=== PATIENT | female | born 1980 | race Caucasian/White ===

== ENCOUNTER 2016-07-08 05:36 | Emergency (ER) | payer OTHER ==
[~2016-07-08] VITALS: Ht 162.6 cm; Wt 90.7 kg
[~2016-07-08 05:36] MED LIST: APAP500 PO; BENADRYL25 MG PO; COLACE 100 MG100 MG PO; DERMOPLAST SPRA56 ML TOP; HYDROCORTISONE30 G9 TOP; IBUPROFEN 600600 M1 PO; IRON325 PO; LANOLIN56 GM TOP; PEPCID AC20 M1 PO; PEPTO-BISM262 MG/15 PO; TUCKS1 EAC1 TOP; ZOFRAN ODT4 MG PO
[2016-07-08 06:02] LABS: BASOPHILS 0.5 % (0.0-2.0); EOSINOPHILS 1.1 % (0.0-3.0); HEMATOCRIT 30.4 % (37.0-47.0); HEMOGLOBIN 9.9 gm/dL (12.0-15.0); LYMPHOCYTES 18.2 % (24.0-44.0); MANUAL DIFF NO; MCH 25.6 pg (26.0-34.0); MCHC 32.6 g/dL (28.0-37.0); MCV 78.3 fL (80.0-100.0); MONOCYTES 6.5 % (1.0-8.0); PLATELET COUNT 313 thou/uL (150-400); POLYS 73.7 % (36.0-66.0); RBC 3.88 mil/uL (4.20-5.00); RDW 15.4 % (10.5-14.5); WBC 13.6 thou/uL (4.0-11.0)
[2016-07-08 07:24] VITALS: BP 130/69
[2016-07-11 17:10] LABS: CHLAMYDIA TRACHOMATIS-PCR Negative (Negative); NEISSERIA GONORRHEA-PCR Negative (Negative)
== END 2016-07-08 07:15 | disposition short-term general hospital (02) ==
LOC: ER 05:36
PROVIDERS: Emergency Medicine
DX: O75.89 Other specified complications of labor and delivery (principal); J45.909 Unspecified asthma, uncomplicated; Z3A.36 36 weeks gestation of pregnancy; Z88.1 Allergy status to other antibiotic agents; Z91.012 Allergy to eggs